=== PATIENT | female | born 1965 | race Caucasian/White ===

== ENCOUNTER 2025-03-20 11:15 | Emergency (ER) | payer OTHER, SELFPAY ==
[2025-03-20 11:19] VITALS: BP 136/81
[2025-03-20 12:22] VITALS: BMI 33.3
--- NOTE | 2025-03-20 12:22 | ED.CVA ---
History of Present Illness
General
Chief Complaint: CVA/TIA Symptoms
Source: patient
Exam Limitations: none
Time Seen by Provider: 03/20/25 12:19
Nursing documentation reviewed up to this point in time: agreed with
Onset of Stroke Symptoms
Onset of symptoms known: Yes
Date of onset of symptoms: 03/18/25
Time pt last seen normal is known: Yes
Date last time pt seen normal: 03/18/25
History of Present Illness
History of Present Illness:
60-year-old female presents emergency department due to left arm weakness facial droop slurred speech since Friday. Slurred speech has been intermittent.
Past History
Past History
ED Past Medical History: Arrthythmia (bradycardia 2014)
ED Past Surgical History: Cardiac (pacemaker 2015)
Social History
Tobacco: Non-smoker
Alcohol: Occasional
Drug: None
Personal:
Living: with family
Employment: Employed
Family History
Family History: Other (Mother with a CVA)
Review of Systems
Review of Systems
Allergies reviewed?: Yes
All Other Systems: Not applicable
Constitutional: Reports no symptoms
EENT: Reports no symptoms
Respiratory: Reports no symptoms
Cardiac: Reports no symptoms
ABD/GI: Reports no symptoms
: Reports no symptoms
Musculoskeletal: Reports no symptoms
Skin: Reports no symptoms
Neurological: Reports weakness and other (Slurred speech)
Endocrine: Reports no symptoms
Hematologic/Lymphatic: Reports no symptoms
Psychiatric: Reports no symptoms
Phy Exam
Physical Exam
Physical Exam:
Physical Exam
General: no apparent distress, not acutely ill
Neck: supple. no meningeal signs. normal posterior pharynx
Heart: s1/s2 regular rate and rhythm, no murmur. equal radial
pulses.
HEENT: Pupils equal round reactive to light, EOMI
Lungs: no acute respiratory distress. clear bilaterally
Abdomen: normal bowel sounds. not tender. no CVAT
Neuro: alert and oriented. Left arm and left leg weaker than right.
Skin: no rash
Psychiatric: well kept. interactive and cooperative
Extremities: no edema. no calf tenderness. negative homans. good distal pulses
Scores
NIH Stroke Score
Level of Consciousness: 0 - Alert
LOC Questions: 0-Answers both correctly
LOC Commands: 0-Performs both correctly
Best Horizontal Gaze: 0-Normal
Visual Lafleur: 0=Normal, no visual loss
Facial Palsy: 0=Normal, symmetrical
Motor - Right Arm: 0=No drift 10 seconds
Motor - Left Arm: 0=No drift 10 seconds
Motor - Right Le-No drift 5 seconds
Motor - Left Le-No drift 5 seconds
Limb Ataxia: 0-Absent
Sensation: 0-Normal
Best Language: 0-No aphasia
Dysarthria: 0-Normal
Extinction and Inattention: 0-No abnormality
NIH Total Score:: 0
Course
Orders/Labs/Results
Orders:
Orders
03/20/25 12:19
CT Head & Neck Angio W/wo IV Urgent
Comment:
Reason For Exam: left facial droop, l hand weak, slurred speech, 2d
03/20/25 12:21
Electrocardiogram (*1) Urgent
Reason for Study: TIA/Stroke
EKG- Treatment ONCE
03/20/25 12:22
IV Insert/Care/Rem.- Treatment PRN
03/20/25 12:36
Complete Blood Count/With Diff Urgent
Comprehensive Metabolic Panel Urgent
PTT Urgent
Prothrombin Time Urgent
03/20/25 16:39
NEUROLOGY CONSULT Routine
Consulting Provider: Bradley Portillo
Was physician already notified: Yes
Reason for consult: LUE weakness
03/20/25 16:49
Clopidogrel Bisulfate [Plavix] 300 mg PO NOW STA
03/20/25 17:10
Clopidogrel Bisulfate [Plavix] 75 mg PO NOW STA
03/20/25 17:11
Clopidogrel Bisulfate [Plavix] 75 mg .ROUTE .STK-MED ONE
Abnormal Lab Results
03/20/25
12:36
MCH 31.6 H pg
(27.0-31.0)
MPV 11.1 H fL
(7.4-10.4)
Absolute Monos (auto) 0.7 H 10^3/uL
(0.1-0.6)
Chloride 111 H mmol/L
(98-107)
Creatinine 1.1 H mg/dL
(0.6-1.0)
Glucose 108 H mg/dl
(70-99)
AST 37 H U/L
(14-36)
ALT 49 H U/L
(0-35)
03/20/25 12:36
03/20/25 12:36
Vital Signs
Initial and Last Documented VS:
Initial Vital Signs
Temp Pulse Resp BP Pulse Ox
97.7 F 60 16 136/81 98
03/20/25 11:19 03/20/25 11:19 03/20/25 11:19 03/20/25 11:19 03/20/25 11:19
Last Documented Vital Signs
Temp Pulse Resp BP Pulse Ox
97.7 F 63 24 124/96 96
03/20/25 11:19 03/20/25 15:59 03/20/25 15:59 03/20/25 17:00 03/20/25 17:01
MDM/Problems Addressed
Differential Diagnosis Includes:
Intracranial hemorrhage, intracranial mass, CVA
MDM/Problems Addressed:
58-year-old female with acute CVA, mild pronator drift, left leg and arm weakness. Seen evaluated by Dr. Godinez, neurologist, recommends starting patient on 21-day course of dual antiplatelet therapy and follow-up as outpatient.
*Radiology
Radiology exam reviewed: radiology read reviewed (CT angiography head and neck no acute findings)
*Pulse Oximetry
Patient hypoxic: no
*EKG
Interpreted by ED Provider?: Yes
EKG Intrepretation Date: 03/20/25
EKG Intrepretation Time: 12:45
Interpretation: abnormal
Comparison EKG: no comparison EKG present
Heart Rate: 67
Rate: normal
Rhythm: av sequential
Bascom: normal axis
Interval: normal interval
QRS Pattern: left bundle branch block
Ischemia: no ischemia
*Family Partner Interpretation
Rate: normal
Interpretation: abnormal
Heart Rate: 67
Rhythm: av sequential
*Critical Care Note
Total Time (30-74mins, 75-104mins- exclusive of procedures): Not Applicable
Patient Management
Social determinants of health affecting care: Living situation and Strong social support
Discussion with other providers: Bronc Breaker (neurology recommends dc)
Escalation/DeEscalation of care consider admission/obs:
admit considered, dc appropriate
ED Attending Note
-
Portions of this chart may have been created with voice recognition software.� Occasional wrong word or��sound alike� substitutions may have occurred due to the inherent limitations of voice recognition software.
Discharge Plan
Departure
Patient Disposition: Home (Routine Discharge)
Date of Disposition: 03/20/25
Time of Disposition: 16:23
Patient with high blood pressure during this ER visit?: Yes
Condition: Good
Discharge Problem:
Acute CVA (cerebrovascular accident)
Instructions: Stroke (DC), BLOOD PRESSURE
Prescriptions:
New
clopidogrel 75 mg tablet
75 mg PO DAILY Qty: 21 0RF
No Action
aspirin [Adult Low Dose Aspirin] 81 mg tablet,delayed release (DR/EC)
81 mg PO DAILY Qty: 90 0RF
acetaminophen [Tylenol] 325 mg Tablet
650 mg PO Q6HPRN PRN (Reason: mild pain)
aspirin 325 mg Tablet
325 mg PO DAILYPRN PRN (Reason: mild pain)
cholecalciferol (vitamin D3) [Vitamin D3] 25 mcg (1,000 unit) Tablet
25 mcg PO DAILY
atorvastatin 40 mg tablet
40 mg PO QPM
Referrals:
Forrest Hughes Jr., DO [Family Provider] -
Dorie Sarmiento MD [Non-Admitting Privileges] - Call in 1-3 days for appt
Interventions
Interventions:
*Risk Screen - Suicide Last Done: 03/20/25 11:23
*General Assessment Last Done: 03/20/25 12:22
*Neglect/Abuse Screening Last Done: 03/20/25 11:23
*ED- Fall Risk Assessment Last Done: 03/20/25 12:22
*ED COVID-19 Vaccine History Last Done: 03/20/25 12:22
*Nursing Disposition Last Done: 03/20/25 17:16
ED- Pulmonary Assessment Last Done: 03/20/25 12:22
ED- Neurological Assessment Last Done: 03/20/25 12:22
ED- Cardiac Assessment Last Done: 03/20/25 12:22
ED Swallowing Screen Last Done: 03/20/25 17:00
Discharge Date and Time
Discharge Date/Time: 03/20/25 17:38
Print Language: MACEDONIAN
[2025-03-20 12:28] VITALS: BP 139/74
[2025-03-20 12:42] LABS: % Basophils 0.7 % (0-2); % Eosinophils 1.6 % (0-6); % Immature Granulocytes 0.4 % (0-0.5); % Lymphocytes 23.4 % (20.5-51.1); % Monocytes 8.2 % (1.7-9.3); % Neutrophils 65.7 % (42.2-75.2); Absolute Basophils 0.1 10^3/uL (0-0.2); Absolute Eosinophils 0.1 10^3/uL (0-0.7); Absolute Lymphocytes 2.1 10^3/uL (1.2-3.4); Absolute Monocytes 0.7 10^3/uL (0.1-0.6); Absolute Neutrophils 5.9 10^3/uL (1.4-6.5); Hemoglobin 14.1 g/dL (12.0-16.0); Mean Corp Hgb Conc. 34.4 g/dL (33.0-37.0); Mean Corpuscular Hgb 31.6 pg (27.0-31.0); Mean Corpuscular Volume 91.9 fL (81.0-99.0); Mean Platelet Volume 11.1 fL (7.4-10.4); Nucleated Red Blood Cells % 0 %; Platelet Count 225 10^3/uL (130-400); Red Blood Cell Count 4.46 10^6/uL (4.20-5.40); White Blood Cell Count 8.9 10^3/uL (4.8-10.8)
[2025-03-20 12:55] LABS: ALT (SGPT) 49 U/L (0-35); AST (SGOT) 37 U/L (14-36); Albumin 4.3 g/dl (3.5-5.0); Alkaline Phosphatase 69 U/L (38-126); Blood Urea Nitrogen 12 mg/dl (7-17); Calcium 9.8 mg/dl (8.4-10.2); Carbon Dioxide 27 mmol/L (22-30); Chloride 111 mmol/L (98-107); Estimated Creatinine Clearance 51 ml/min; Glucose 108 mg/dl (70-99); Potassium 4.2 mmol/L (3.5-5.1); Sodium 144 mmol/L (135-145); Total Bilirubin 0.8 mg/dl (0.2-1.3); eGFR 56.81
[2025-03-20 12:59] LABS: PT 13.5 Sec (11.4-14.6)
[2025-03-20 13:00] VITALS: BP 119/96
[2025-03-20 13:00] LABS: APTT 30.2 Sec (23.4-35.0)
[2025-03-20 14:00] VITALS: BP 128/76
[2025-03-20 15:00] VITALS: BP 121/88
[2025-03-20 17:00] VITALS: BP 124/96
[2025-03-20] MEDS: PLAVIX 300 MG PO (17:07)
[2025-03-20] MEDS: PLAVIX 75 MG PO (17:12)
--- NOTE | 2025-03-20 18:58 | CON.NEURO ---
Neuro Assessment/Plan
Assessment
Head Ct imgs and report rev'd, prior right posterior parietal hypodensity, likely old infarct
CTA head/neck imgs and rept rev'd, mild carotid plaque without significant stenosis.
pacemaker without afib
acute lacunar stroke due to persistent symptoms, patient with minimal deficits
Plan
continue ASA 81 and Lipitor 40
Load Plavix 300, 21 days of plavix
patient wants to go home, ok to discharge, optional outpatient MRI though seeing a stroke or not will not change the management
Consultation
Order
Date of Consultation: 03/20/25
Requesting Provider: Neal Randolph
Reason for Consult: acute stroke
Subjective/Objective
Subjective Data
Date of Service: March 20, 2025
60-year-old female presents emergency department due to left arm weakness facial droop slurred speech since Friday. Slurred speech has been intermittent. patient is minimally symptomatic
h/o bradycardia, aflutter, s/p pacemaker, transiently on A-flutter. pacemaker showing no signs of afib.
Objective Data
Vital Signs
Temp Pulse Resp BP Pulse Ox
36.5 C 63 24 124/96 96
03/20/25 11:19 03/20/25 15:59 03/20/25 15:59 03/20/25 17:00 03/20/25 17:01
Lab Results
03/20/25 12:36
03/20/25 12:36
PT 13.5 Sec (11.4-14.6) 03/20/25 12:36
INR 1.00 03/20/25 12:36
APTT 30.2 Sec (23.4-35.0) 03/20/25 12:36
Sodium 144 mmol/L (135-145) 03/20/25 12:36
Potassium 4.2 mmol/L (3.5-5.1) 03/20/25 12:36
BUN 12 mg/dl (7-17) 03/20/25 12:36
Glucose 108 mg/dl (70-99) H 03/20/25 12:36
Calcium 9.8 mg/dl (8.4-10.2) 03/20/25 12:36
Patient Allergies
No Known Allergies Allergy (Verified 03/20/25 11:19)
Physical Exam
-
AAOx3, speech clear, language intact
VFF, EOMI, face symmetric,
trace left UE/LE weakness, left pronator drift
sensation intact to touch/pin
finger/nose no ataxia
Medications
-
Home Medications
�Medication �Instructions �Recorded
aspirin 81 mg tablet,delayed 81 mg PO DAILY #90 tabs 06/04/22
release (Adult Low Dose Aspirin)
acetaminophen 325 mg tablet 650 mg PO Q6HPRN PRN mild pain 03/20/25
(Tylenol)
aspirin 325 mg tablet 325 mg PO DAILYPRN PRN mild pain 03/20/25
atorvastatin 40 mg tablet 40 mg PO QPM 03/20/25
cholecalciferol (vitamin D3) 25 25 mcg PO DAILY 03/20/25
mcg (1,000 unit) tablet (Vitamin
D3)
clopidogrel 75 mg tablet 75 mg PO DAILY #21 tabs 03/20/25
== END 2025-03-20 17:38 | disposition home or self-care (01) ==
LOC: EMR 11:15
PROVIDERS: CONSULT PHYSICIAN Psychiatry & Neurology Clinical Neurophysiology; EMERGENCY PHYSICIAN Emergency Medicine; FAMILY PHYSICIAN Family Medicine
DX: I63.9 Cerebral infarction, unspecified (principal); Z79.02 Long term (current) use of antithrombotics/antiplatelets; Z82.3 Family history of stroke; Z95.0 Presence of cardiac pacemaker
CPT/HCPCS: 99284; 70496; 70498; 80053; 85025; 85610; 85730; 93005; Q9967

== ENCOUNTER → 2025-09-20 12:54 | Outpatient (REF) | payer OTHER, SELFPAY ==
[2025-09-20 13:19] LABS: Hematocrit 44.2 % (37.0-47.0); Hemoglobin 14.4 g/dL (12.0-16.0); Mean Corp Hgb Conc. 32.6 g/dL (33.0-37.0); Mean Corpuscular Volume 94.0 fL (81.0-99.0); Nucleated Red Blood Cells % 0 %; Platelet Count 175 10^3/uL (130-400); Red Cell Dist. Width 14.4 % (11.5-14.5)
[2025-09-20 13:42] LABS: Blood Urea Nitrogen 11 mg/dl (7-17); Calcium 9.4 mg/dl (8.4-10.2); Carbon Dioxide 25 mmol/L (22-30); Chloride 105 mmol/L (98-107); Glucose 95 mg/dl (70-99); Potassium 4.3 mmol/L (3.5-5.1); Sodium 137 mmol/L (135-145); eGFR > 60.00
== END ==
LOC: REG 12:54
PROVIDERS: ATTENDING PHYSICIAN Nurse Practitioner Adult Health
DX: R19.7 Diarrhea, unspecified (principal); R10.31 Right lower quadrant pain
CPT/HCPCS: 36415; 80048; 85025

== ENCOUNTER → 2025-09-21 15:34 | Outpatient (REF) | payer OTHER, SELFPAY | LOC: RAD 15:34 | PROVIDERS: ATTENDING PHYSICIAN Nurse Practitioner Adult Health | DX: R19.7 Diarrhea, unspecified (principal); R10.31 Right lower quadrant pain | CPT/HCPCS: 74177; Q9967 ==

== ENCOUNTER → 2025-10-19 11:34 | Outpatient (REF) | payer OTHER, SELFPAY | LOC: WDC 11:34 | PROVIDERS: ATTENDING PHYSICIAN Obstetrics & Gynecology Gynecology; FAMILY PHYSICIAN Family Medicine | DX: Z12.31 Encounter for screening mammogram for malignant neoplasm of breast (principal) | CPT/HCPCS: 77063; 77067 ==